=== PATIENT | male | born 1970 | race Asian ===

== ENCOUNTER 2017-12-07 15:29 | Emergency (ER) | payer MEDICAID, OTHER ==
[~2017-12-07] VITALS: Ht 182.9 cm; Wt 87.5 kg
[2017-12-07 15:37] VITALS: BP 162/104
== END 2017-12-07 17:16 | disposition home or self-care (01) ==
LOC: ER 15:29
DX: J02.9 Acute pharyngitis, unspecified (principal); E11.9 Type 2 diabetes mellitus without complications; I10 Essential (primary) hypertension
CPT/HCPCS: 70360; 82962